=== PATIENT | female | born 1970 | race Caucasian/White ===

== ENCOUNTER 2017-01-19 09:43 | Day surgery (SDC) | payer OTHER ==
[~2017-01-19] VITALS: Ht 172.7 cm; Wt 71.0 kg
[2017-01-19] VITALS (13 sets, daily range): BP systolic 95–145; BP diastolic 6–82; PULSE 65–73; RESP 10–16; O2SAT 73–100
[~2017-01-19 09:43] MED LIST: FERR-83 PO; Lactated Ringer's 1,000 ML IV SCH; SERT20OR6 PO
[2017-01-19] MEDS ORDERED: Ondansetron 2 mg/mL 2 mL Inj ONE (09:44)
[2017-01-19] MEDS ORDERED: Propofol 10,000 mCg/mL 20 mL Inj ONE (09:44)
[2017-01-19] MEDS ORDERED: Dexamethasone 4 mg/mL Inj ONE (09:44)
[2017-01-19] MEDS ORDERED: HYDROmorphone 2 mg/mL Inj ONE (09:44)
[2017-01-19] MEDS ORDERED: MetoCLOpramide 5 mg/mL 2 mL Inj ONE (09:44)
--- NOTE | 2017-01-19 11:09 | PCM.HPANE ---
Patient Data Date of Service: Jan 19, 2017 Surgeon Admitting Provider: Attending Provider:Petey Sibley MD Primary Care Physician:Hema Other Provider:Rosalia Duke Anesthesia Reason for Visit Abnormal Uterine Bleeding Ht/WT & BMI Height (Feet): 5 Height (Inches): 8.00 Weight (Kilograms): 71.0 Body Mass Index 23.00 Allergies Coded Allergies: amoxicillin (Verified Allergy, Intermediate, RASH, 01/15/17) clavulanic acid (Verified Allergy, Intermediate, RASH, 01/15/17) Past Anesthesia History Anesthesia History: Denies:: Anesthesia Reactions, Fam Anesthesia Reaction, Fam Malignant Hypertherm, Malignant Hyperthermia Diabetes History Hx Diabetes?: No MRSA MRSA: No Medications Hypertension Medication: No Home Meds Incl Beta Conner: No Reported Medications Sertraline HCl (Sertraline)20 Mg/1 Ml Oral.conc50 Mg PO DAILY #1 BOTTLE Ref 0 01/15/17 Ferrous Sulfate 325 Mg [id number] Mg PO TID 30 Days Ref 0 01/15/17 History History of ENT Problems?: No HEENT History: Positive for:: Hearing Problem (EUSTACHIAN TUBE DYSFUCTION) Sinus Problem (DEVIATED NASAL SEPTUM, ALLERGIC RHINITIS) TMJ Denture Type: None Teeth Condition: Tooth Decay Hx of Heart Problems?: No Cardiovascular History: Denies:: Chest Pain Other Cardiac History: Raynaud's, no syncope/presyncope Hx of Respiratory Problem?: Yes Respiratory History: Denies:: Asthma Other Resp Pertinent History: smoker Hx Neurologic Problems?: No Neurological History: Denies:: CVA Seizures TIA Hx of GI Problems?: No Gastrointestinal History: Denies:: Gastroesphageal Reflux Hx of Problems?: No Female Hx: Positive for:: Endometriosis Denies:: Currently Skin History: Positive for:: History Skin Disorders? (ECZEMA) Hx Musculoskeletal Problems?: Yes Other History/Comment lower back pain Hx of Psycho/Social Problems?: Yes Psycho Social History: Positive for:: Hx Depression Hx Surgeries?: Yes Other History/Comment BMT, tympanoplasty bilateral, laparoscopy, T&A Hx Any Other Health Problems?: No History Blood Transfusions: Positive for:: Accept Blood Products? Hx Diabetes: No Other Pertinent History: ANEMIA Hx Alcohol Use: Yes (no DT's, endorses being an a alcoholic)Alcoholic Drinks Per Day: 1 pint vodka each evening Smoking Status: Current Every Day Smoker Have You Smoked inLast 12 mo: YesApprox How Many Cigarettes/day: [id number] Stop/Bang Treated for Sleep Apnea?: No Do You Have a CPAP Machine?: No S-Snoring: Do You Snore Loudly: Yes T-Tired: feel tired, fatigued: Yes O-Obsered: Observed not breath: No P-Blood Pressure: treated: No B- Body Mass Index > 35 kg/m2: No A- Age over 50: No N- Neck Large Circumference: No G- Gender Male: No KEMAL Total Score: 2 KEMAL Risk Assessment: Low Risk, <3 Yes Risk Assessment Category Category 1A: Patient has history of documented sleep apnea, and HAS NOT received any narcotic, sedative or anesthesia administration during this stay. Category 1B: Patient has history of documented sleep apnea, and HAS received any narcotic , sedative or anesthesia administration during this stay Category 2: Patient has SUSPECTED Obstructive Sleep Apnea, and HAS received any narcotic , sedative or anesthesia administration during this stay. Category 3: Patient has SUSPECTED Obstructive Sleep Apnea and HAS NOT received narcotic, sedative or anesthesia administration during this stay. Category 4: Outpatient in Procedural Areas with known sleep apnea or who screen positive for High Risk via the STOP/BANG questionnaire. Exam Exam Vital Signs Vital Signs Date Time Temp Pulse Resp B/P Pulse Ox O2 Delivery O2 Flow Rate FiO2 01/19/17 10:35 36.7 66 16 119/73 98 Room Air General Appearance: Alert, Oriented X3, Cooperative, No Acute Distress HEENT/AIRWAY: MP 2, Neck Movement (from), Mouth Opening (>3), Other (TMD>3) Lungs: Diminished Heart: Regular Rate/Rhythm, Normal S1, Normal S2, Murmur (S3 gallop) Plan Impression Patient chart reviewed, patient interviewed and anesthestic plan with risks, benefits, and alternatives discussed, and informed consent obtained. NPO per Anesth. Guidelines: No ASA Physical Status: ASA2 Mod Systemic Disease Anesthetic Plan: GA Bene/Risks/Altern/Consents: Yes HP Complete Prior to Induction: Yes Nima Workman MD Jan 19, 2017 11:09
[2017-01-19] MEDS ORDERED: Lactated Ringer's 1,000 ML IV ONE ×2 (11:23→12:40)
[2017-01-19] MEDS ORDERED: Dexamethasone 4 mg/mL Inj IVPUSH PRN (12:05)
[2017-01-19] MEDS ORDERED: Lactated Ringer's 1,000 ML IV SCH (12:05)
[2017-01-19] MEDS ORDERED: fentaNYL-PF 50 mCg/mL 2 mL Inj IVPUSH PRN (12:05)
[2017-01-19] MEDS ORDERED: Ondansetron 2 mg/mL 2 mL Inj IVPUSH PRN ×2 (12:05→12:55)
[2017-01-19] MEDS ORDERED: EPHEDrine Sulfate 50 mg/mL Inj IVPUSH PRN (12:05)
[2017-01-19] MEDS ORDERED: MetoCLOpramide 5 mg/mL 2 mL Inj IVPUSH PRN (12:05)
[2017-01-19] MEDS ORDERED: HYDROmorphone 1 mg/mL Inj IVPUSH PRN (12:05)
[2017-01-19] MEDS ORDERED: Phenylephrine 10,000 mCg/mL Inj IVPUSH PRN (12:05)
[2017-01-19] MEDS ORDERED: Lactated Ringer's 500 ML IV PRN (12:05)
[2017-01-19] MEDS ORDERED: oxyCODONE-Acetamin 5-325 mg Tablet PO PRN (12:55)
[2017-01-19] MEDS ORDERED: diphenhydrAMINE 25 mg Capsule PO PRN (12:55)
--- NOTE | 2017-01-19 12:58 | PCM.DIMED ---
Discharge Instructions Date of Service Jan 19, 2017 Dates of Hospitalization Diet Discharge Diet: No restrictions Activity Discharge Activity: No restrictions Call your provider Call your provider for: Fever or Chills, Shortness of breath, Bleeding, Chest pain, Vomitting, Excessive diarrhea, Weakness (unilateral) Patient Instructions Follow-up with PCP in: 2 weeks Petey Sibley MD Jan 19, 2017 12:58
--- NOTE | 2017-01-19 13:57 | PCM.ANEP1 ---
Post Anesthesia PACU Phase 1 Assessment Date of Service: Jan 19, 2017 Vital Signs Vital Signs Date Time Temp Pulse Resp B/P Pulse Ox O2 Delivery O2 Flow Rate FiO2 01/19/17 13:42 36.9 70 11 119/68 97 Nasal Cannula 3 01/19/17 13:40 65 10 95 Nasal Cannula 3 01/19/17 13:30 72 10 132/75 94 Room Air 01/19/17 13:25 72 16 133/71 96 Room Air 01/19/17 13:22 73 16 130/73 96 Room Air 01/19/17 13:15 71 13 145/80 96 Room Air 01/19/17 13:11 73 16 140/82 100 Room Air 01/19/17 13:05 68 13 139/80 100 Simple Mask 10 01/19/17 13:01 71 13 144/77 100 Simple Mask 10 01/19/17 12:53 36.9 72 13 95/81 100 Simple Mask 10 01/19/17 10:35 36.7 66 16 119/73 98 Room Air Anesthetic Administered: GA Level of Alertness: Awake, talking ARANA's with Equal Strength: Yes Pain: No Pain Scale Score: 0 Nausea or Vomiting: No CV Function & Hydration Stable: Yes Airway Device: none in PACU Oxygen Delivery: Simple Mask Lungs: Diminished Summary 01/19/17 13:42 36.9 70 11 119/68 97 Nasal Cannula 3 PACU Phase 2 Assessment Complications: No Follow up Care: No Patient Instructions Provided: Yes Nima Workman MD Jan 19, 2017 13:57
--- NOTE | 2017-01-19 21:21 | OP ---
[address] [address] OPERATIVE REPORT PATIENT: SHAGUFTA ACOSTA : 1970 MR#: [id number] ADMIT: 01/19/2017 JOB ID: [id number] CORRECTED REPORT: DATE OF SURGERY: 01/19/2017 SURGEON: Petey Sibley MD PROCEDURE: 1. Hysteroscopy and hysteroscopic myomectomy using MyoSure device. 2. Endometrial ablation using MyoSure device. PREOPERATIVE DIAGNOSIS(ES): Abnormal uterine bleeding. POSTOPERATIVE DIAGNOSIS(ES): 1. Abnormal uterine bleeding. 2. Submucosal leiomyoma. ANESTHESIA: General. ANESTHESIOLOGIST: Nima Workman MD. ESTIMATED BLOOD LOSS: 50 mL. ESTIMATED URINE OUTPUT: 100 mL. FLUIDS: 800 mL of lactated Ringer. Fluid deficit during hysteroscopy 1000 mL of normal saline. COMPLICATIONS: None. FINDINGS: Submucosal leiomyoma of the uterus, type 1, about 2 cm in size. Normal appearance of the cervix and vagina. PROCEDURE IN DETAIL: The patient was brought to the operating room where she underwent general anesthesia without difficulty. The patient was placed in the dorsal lithotomy position using Brian stirrups. She was prepped and draped in usual surgical fashion. Time-out was performed verifying correct patient, correct procedure. Two Miller retractors were placed into the vagina. The cervix was visualized and grasped with a tenaculum. It was dilated using Hegar dilators to the size of 8 mm. Using MyoSure hysteroscope, the uterine cavity was reviewed, it was noted that the patient has submucosal leiomyoma measuring about 2 cm located at 7 o'clock of the uterine cavity. Using my MyoSure tissue removal device, regular sized, the hysteroscopic myomectomy was performed. Total fluid deficit was 1000 mL. The specimen was sent to Pathology. Endometrial ablation was done using NovaSure instrument. The cavity assessment was initially performed and the uterus measured 6.0 cm for the length and 4.3 cm for the width. When the cavity assessment was completed, ablation cycle was started and was completed in 56 seconds. Hysteroscopy was performed at the end of the procedure. All the instruments were removed, good hemostasis was achieved. The patient was repositioned back into the supine position. She tolerated the procedure well and was transferred to the recovery room in stable condition. Corrected by GS 01/25/17 at 1:59pm DOS.
--- NOTE | 2017-01-20 13:43 | PATH ---
SURGICAL PATHOLOGY Attending Physician:Petey Sibley MD CASE STATUS: Signed Out PATIENT NAME: SHAGUFTA ACOSTA PID: [id number] : 1970 DATE COLLECTED:01/19/2017 22:56 SPECIMEN: Uterine Contents CLINICAL HISTORY: ABNORMAL UTERINE BLEEDING SUBMUCOSAL LEIOMYOMA 1). UTERINE FIBROID FINAL DIAGNOSIS: 1.SPECIMEN DESIGNATED UTERINE FIBROID: MULTIPLE FRAGMENTS OF UTERINE SUBMUCUS LEIOMYOMA, NEGATIVE FOR ATYPIA. SECRETORY ENDOMETRIUM, NEGATIVE FOR ATYPIA. ICD10 D25.9 GROSS DESCRIPTION: The specimen is received in one formalin filled container labeled with the patient's name, sublabeled "uterine fibroid" and consists of multiple portions of daly-starr tissue which aggregate to 4.5 x 3.0 x 0.6 CM the specimen is entirely submitted in 4 cassettes. 01/20/2017 [facility] MICRO DESCRIPTION: See diagnosis. ICD-9 CODES: CPT CODES: 1: 87881 Electronically Signed Out Nathanael Pratt MD [facility] [address], [place] [address] Technical component performed at [facility], [facility] [address], [place], [address]
== END 2017-01-19 23:59 | disposition home or self-care (01) ==
LOC: SAS 09:43
PROVIDERS: ATTEND Legal Medicine
DX: N93.9 Abnormal uterine and vaginal bleeding, unspecified (principal); D25.9 Leiomyoma of uterus, unspecified; J30.9 Allergic rhinitis, unspecified; I73.00 Raynaud's syndrome without gangrene; N80.9 Endometriosis, unspecified; D50.9 Iron deficiency anemia, unspecified; F32.9 Major depressive disorder, single episode, unspecified; F17.210 Nicotine dependence, cigarettes, uncomplicated
CPT/HCPCS: 58563; J1100; J1170; J1885; J2250; J2405; J2765; J3010; J7120

== ENCOUNTER 2017-05-04 05:52 | Day surgery (SDC) | payer OTHER ==
[2017-05-04] VITALS (13 sets, daily range): BP systolic 102–145; BP diastolic 63–89; PULSE 60–78; RESP 9–24; O2SAT 97–100
[~2017-05-04] VITALS: Ht 172.7 cm; Wt 73.6 kg
[~2017-05-04 05:52] MED LIST changes: +Acetaminophen IV 1,000 MG in IV Premix 1 EACH IV ONE; +DISU500T PO; -Lactated Ringer's 1,000 ML IV SCH
[2017-05-04] MEDS ORDERED: Ondansetron 2 mg/mL 2 mL Inj ONE (05:53)
[2017-05-04] MEDS ORDERED: Glycopyrrolate 0.2 MG/ML 1mL Inj ONE (05:53)
[2017-05-04] MEDS ORDERED: EPHEDrine/NS 5 mg/mL 5 mL Syringe ONE (05:53)
[2017-05-04] MEDS ORDERED: Dexamethasone 4 mg/mL Inj ONE (05:53)
[2017-05-04] MEDS ORDERED: Rocuronium 10 mg/mL 5 mL Inj ONE (05:53)
[2017-05-04] MEDS ORDERED: Neostigmine 1 mg/mL 10 mL Inj ONE (05:53)
[2017-05-04] MEDS ORDERED: Morphine PF 1 mg/mL 10 mL Inj ONE (05:53)
[2017-05-04] MEDS ORDERED: fentaNYL-PF 50 mCg/mL 2 mL Inj ONE (05:53)
[2017-05-04] MEDS ORDERED: Propofol 10,000 mCg/mL 20 mL Inj ONE (05:53)
[2017-05-04] MEDS ORDERED: SODIUM CHLORIDE 0.9% IV ONE (06:00)
[2017-05-04] MEDS: Lactated Ringer's 1,000 ML IV SCH ×2 (06:00→07:32)
[2017-05-04] MEDS ORDERED: GENTAMICIN IV ONE (06:00)
[2017-05-04] MEDS ORDERED: Clindamycin Inj 900 MG in IV Premix 1 EACH IV ONE (06:00)
[2017-05-04] MEDS ORDERED: MULT-1018 PO (06:16)
[2017-05-04] MEDS ORDERED: VIT B PO (06:16)
[2017-05-04 07:07] LABS: INR 0.97 ratio
[2017-05-04] MEDS ORDERED: Bupivacaine-MPF 0.5% 30 mL Inj INFILTRATE ONE (08:28)
[2017-05-04] MEDS ORDERED: Lactated Ringer's 1,000 ML IV SCH (08:41)
[2017-05-04] MEDS ORDERED: Lactated Ringer's 500 ML IV PRN (08:41)
--- NOTE | 2017-05-04 08:41 | PCM.HPANE ---
Patient Data Date of Service: May 04, 2017 Surgeon Admitting Provider: Attending Provider:Petey Sibley MD Primary Care Physician:Shikha Sarah PA-C Other Provider:Rosalia Duke Anesthesia Reason for Visit Fibroids, Pelvic Pain, Stress Incontinence Ht/WT & BMI Height (Feet): 5 Height (Inches): 8.00 Weight (Kilograms): 73.6 Body Mass Index 24.00 Allergies Coded Allergies: amoxicillin (Verified Allergy, Intermediate, RASH, 01/15/17) clavulanic acid (Verified Allergy, Intermediate, RASH, 01/15/17) Past Anesthesia History Anesthesia History: Denies:: Abnormal Airway, Anesthesia Reactions, Fam Anesthesia Reaction, Fam Malignant Hypertherm, Malignant Hyperthermia Diabetes History Hx Diabetes?: No MRSA MRSA: No Medications Hypertension Medication: No Home Meds Incl Beta Conner: No Reported Medications [vit b6 & 2] No Conflict Check Po Daily 05/04/17 Multivitamin (Multi Vitamin Daily)1 Each Tablet1 Each PO DAILY 30 Days Ref 0 05/04/17 Disulfiram (Antabuse)500 Mg [id number] Mg PO DAILY 04/23/17 Sertraline HCl (Sertraline)20 Mg/1 Ml Oral.conc50 Mg PO DAILY #1 BOTTLE Ref 0 01/15/17 Discontinued Reported Medications Ferrous Sulfate 325 Mg Bavavp125 Mg PO TID 30 Days Ref 0 01/15/17 History History of ENT Problems?: No HEENT History: Positive for:: Sinus Problem (hx of deviated septum) TMJ Denies:: Abnormal Airway Denture Type: None Teeth Condition: Within Normal Limits Hx of Heart Problems?: No Cardiovascular History: Denies:: Chest Pain Hypertension Hx of Respiratory Problem?: No Respiratory History: Denies:: Asthma Oxygen Administration Use of C-PAP Machine Hx Neurologic Problems?: No Neurological History: Denies:: CVA Multiple Sclerosis Parkinson's Disease Seizures Hx of GI Problems?: No Hx of Problems?: Yes HX of Peritoneal Dialysis: No Female Hx: Positive for:: Endometriosis Denies:: Currently Skin History: Positive for:: History Skin Disorders? (ECZEMA) Hx Musculoskeletal Problems?: No Hx of Psycho/Social Problems?: Yes Psycho Social History: Positive for:: Hx Depression Hx Surgeries?: Yes (hysteroscopy, ablation) Hx Any Other Health Problems?: No Other History: Denies:: Cancer Thyroid Disease Hx Diabetes: No Other History/Comment no EtOH since 03/24. Review of labs indicated no endo organ damage from EtOH with exception of thrombocytopenia, however, PLTs >100 indicate expectable risk of placing neuraxial block given normal coagulation profile. Hx Alcohol Use: Yes (pint of vodka evening)Hx Substance Use: No Smoking Status: Current Every Day Smoker Have You Smoked inLast 12 mo: Yes Stop/Bang Treated for Sleep Apnea?: No Do You Have a CPAP Machine?: No S-Snoring: Do You Snore Loudly: No T-Tired: feel tired, fatigued: No O-Obsered: Observed not breath: No P-Blood Pressure: treated: No B- Body Mass Index > 35 kg/m2: No A- Age over 50: No N- Neck Large Circumference: No G- Gender Male: No KEMAL Risk Assessment: Low Risk, <3 Yes Risk Assessment Category Category 1A: Patient has history of documented sleep apnea, and HAS NOT received any narcotic, sedative or anesthesia administration during this stay. Category 1B: Patient has history of documented sleep apnea, and HAS received any narcotic , sedative or anesthesia administration during this stay Category 2: Patient has SUSPECTED Obstructive Sleep Apnea, and HAS received any narcotic , sedative or anesthesia administration during this stay. Category 3: Patient has SUSPECTED Obstructive Sleep Apnea and HAS NOT received narcotic, sedative or anesthesia administration during this stay. Category 4: Outpatient in Procedural Areas with known sleep apnea or who screen positive for High Risk via the STOP/BANG questionnaire. Exam Exam Vital Signs Vital Signs Date Time Temp Pulse Resp B/P Pulse Ox O2 Delivery O2 Flow Rate FiO2 05/04/17 06:20 36.2 70 18 140/89 99 Room Air General Appearance: Alert, Oriented X3 HEENT/AIRWAY: MP 1 Lungs: Clear to Auscultation Heart: Exam Unremarkable Meds/Labs/Diagnostics Admission Meds Current Medications Lactated Ringer's (Lr) 1,000 ml @ 120 mls/hr Q8H20M IV Last administered on t 06:00; Start 05/04/17 at 05:00; Stop 05/04/17 at 13:19 Labs Test 05/04/17 06:37 Prothrombin Time 10.1sec (8.1-12.5) Prothromb Time International Ratio 0.97ratio Activated Partial Thromboplast Time 27.9sec (22.8-33.0) Plan Impression Patient chart reviewed, patient interviewed and anesthestic plan with risks, benefits, and alternatives discussed, and informed consent obtained. NPO per Anesth. Guidelines: No ASA Physical Status: ASA3 Severe Disease Anesthetic Plan: GA Bene/Risks/Altern/Consents: Yes HP Complete Prior to Induction: Yes Randy Salazar MD May 04, 2017 08:41
[2017-05-04] MEDS ORDERED: Dexamethasone 4 mg/mL Inj IVPUSH PRN (08:45)
[2017-05-04] MEDS ORDERED: Ondansetron 2 mg/mL 2 mL Inj IVPUSH PRN ×2 (08:45→11:30)
[2017-05-04] MEDS ORDERED: MetoCLOpramide 5 mg/mL 2 mL Inj IVPUSH PRN (08:45)
[2017-05-04] MEDS ORDERED: fentaNYL-PF 50 mCg/mL 2 mL Inj IVPUSH PRN (08:45)
[2017-05-04] MEDS ORDERED: EPHEDrine Sulfate 50 mg/mL Inj IVPUSH PRN (08:45)
[2017-05-04] MEDS ORDERED: HYDROmorphone 1 mg/mL Inj IVPUSH PRN (08:45)
[2017-05-04] MEDS ORDERED: Phenylephrine 10,000 mCg/mL Inj IVPUSH PRN (08:45)
[2017-05-04] MEDS ORDERED: Lactated Ringer's 1,000 ML IV ONE ×2 (09:40)
[2017-05-04] MEDS ORDERED: Gentamicin 40 mg/mL 2 mL Inj IRRIGATION ONE (09:53)
[2017-05-04] MEDS ORDERED: Estrogens Conjugated 30 Gm Vaginal Cream VAGINAL ONE (09:54)
[2017-05-04] MEDS ORDERED: Vasopressin 20 Unit/mL Inj SUBQ ONE (10:24)
[2017-05-04] MEDS ORDERED: Alum-Mag Hydrox-Simeth 30 mL Suspension PO PRN (11:30)
[2017-05-04] MEDS ORDERED: oxyCODONE-Acetamin 5-325 mg Tablet PO PRN (11:30)
[2017-05-04] MEDS ORDERED: Senna-Docusate 8.6-50 mg Tablet PO PRN (11:30)
--- NOTE | 2017-05-04 12:27 | OP ---
[address] [address] OPERATIVE REPORT PATIENT: SHAGUFTA ACOSTA : 1970 MR#: [id number] ADMIT: 05/04/2017 JOB ID: [id number] DATE OF SURGERY: 05/04/2017 PROCEDURE: 1. Total laparoscopic hysterectomy with bilateral salpingectomy. 2. Placement of mid urethral transobturator sling. PREOPERATIVE DIAGNOSIS(ES): 1. Abnormal uterine bleeding. 2. Fibroid uterus. 3. Chronic pelvic pain. 4. Stress urinary incontinence. POSTOPERATIVE DIAGNOSIS(ES): 1. Abnormal uterine bleeding. 2. Fibroid uterus. 3. Chronic pelvic pain. 4. Stress urinary incontinence. SURGEON: Petey Sibley MD. AIR CARGO AGENT: Aileen Hwang MD. The assistance of Dr. Hwang was necessary for proper manipulation of the tissue, helping with visualization of anatomical structures and retraction and tissue manipulation during the placement of mid urethral sling. ANESTHESIOLOGIST: Randy Salazar MD. ANESTHESIA: General. ESTIMATED BLOOD LOSS: 50 mL. ESTIMATED URINE OUTPUT: 150 mL. FLUIDS: 1400 mL of lactated Ringer's. COMPLICATIONS: None. FINDINGS: The perineum was normal. There was slight pelvic floor relaxation. Normal appearance of the cervix. Fibroid uterus, enlarged with protruding fundal fibroid about the same as the size of the uterus. Normal appearance of fallopian tubes and ovaries. INDICATION FOR THE PROCEDURE: The patient is a 47-year-old, 3, para 3, who has been having abnormal uterine bleeding. Prior endometrial ablation with hysteroscopic myomectomy failed to relieve the symptoms. Also, the patient has been complaining of stress urinary incontinence. She was consented for total laparoscopic hysterectomy with bilateral salpingectomy and placement of mid urethral sling. DESCRIPTION OF PROCEDURE: The patient was brought to the operating room, where she underwent general anesthesia without difficulties. The patient was placed in the dorsal lithotomy position using Brian stirrups. She was prepped and draped in usual surgical fashion. She received preoperative antibiotics. Time-out was performed verifying correct patient, correct procedure. Two Miller retractors were placed into the vagina. The cervix was identified, grasped with a tenaculum and VCare uterine manipulator was placed. The tenaculum was removed. Joseph catheter was placed prior to the procedure as well. Attention was directed to the patient's abdomen, where local injection of lidocaine was administered at the paraumbilical area. Veress needle was introduced. CO2 gas was insufflated with appropriate pneumoperitoneum achieved. A 5 mm vertical subumbilical skin incision was made with a scalpel and a 5 mm trocar was placed. The pelvis was reviewed with a 30-degree laparoscope with the findings mentioned above. Two additional skin incisions were made, one in left lower quadrant 5 cm medially and superiorly from anterior superior iliac spine and the second 5 mm right lower quadrant incision was made 5 cm medially and about 8 cm superiorly from the anterior superior iliac spine. Then, 5 mm trocars were placed through the incision. Using the Lengow uterine manipulator to elevate the uterus in the pelvis and smooth DeBakey grasper for manipulation of the tissue, with the help of Thunderbeat instrument, left and right fallopian tubes were dissected from the mesosalpinx and sent to Pathology in two separate specimens. With the Thunderbeat instrument, the patient's left round ligament, and tubo-ovarian ligaments were ligated and transected. Further dissection was provided along the posterior and anterior leaves of broad ligament until the lower portion of the uterus was reached. The uterine artery on the left side was skeletonized, ligated in two different places and transected. Good hemostasis was achieved. The same was done on the patient's contralateral side. Using LigaSure instrument, anterior portion of the peritoneum was transected along the lower uterine segment and dissected from it, the bladder was moved away from the lower uterine segment and bladder flap was created. A circumferential incision was made with the Thunderbeat instrument, the posterior part of the cervix from the vaginal cuff, preserving uterosacral ligaments intact. It was continued on the patient's right and left sides and then circumferentially finished through anterior portion of the cervix from the vagina. When the dissection was completed, the specimens of uterus and cervix were removed vaginally and sent to Pathology. The vaginal cuff was reapproximated using 2-0 V-Loc suture from patient's left to the right side. During reapproximation it was suspended to the patient's left and right uterosacral ligaments. The pelvis was irrigated with warm normal saline and good hemostasis was reassured. The patient was repositioned into the supine position and the abdomen was desufflated from the CO2 gas. Attention was directed to the vaginal part of the procedure. A weighted speculum was placed into the vagina. Using a solution of vasopressin with normal saline, 20 units of vasopressin were diluted in 100 mL of normal saline. It was injected into mid urethral portion. After that sagittal incision was made with a scalpel and vaginal mucosa was from the underlying tissue using Metzenbaum scissors. Dissection was done towards the right and left rami of the pubic bone. The left and right entry points for placement of the mid urethral sling were marked. They were marked 1 cm laterally and inferiorly from the insertion of the adductor longus tendon. The skin was perforated with a scalpel. Using Gamelet mid urethral sling device, the sling was placed. The helical needle was initially placed on the patient's right side from the outside to inside rotating motion until the tip of the needle reached the mid urethra. The same was done on the patient's contralateral side. The mid urethral sling was attached to the tip of the needle and with a backward motion it was placed tension free at the mid urethral. For better hemostasis, solution of thrombin was applied to the area of the dissection. No bleeding was noted. The transected vaginal mucosa was reapproximated with 2-0 Vicryl suture in a running, locking fashion. The portions of the sling at the level of the skin were trimmed, and the skin was reapproximated with two interrupted 2-0 Vicryl sutures. Dermabond glue was applied as well. Cystoscopy was performed using a 30-degree scope. The bladder mucosa was found to be intact and both ureteral jets were seen confirming patency of both ureters. The urethra was found to be intact. The cystoscope was removed and the Joseph catheter was replaced. The vaginal packing was placed soaked with Premarin cream. Attention was then directed to the abdominal portion of the procedure where all the trocars were removed. After that, the trocar skin incisions were reapproximated with 4-0 Monocryl. Hemostatic dressings were applied. The patient was positioned back into a supine position. She tolerated the procedure well and was transferred to the recovery room in stable condition.
--- NOTE | 2017-05-04 13:11 | NUR ---
Postop Pt comes to floor A&OX4. RA, IV SL. Vaginal packing in place with little drainage SS. Joseph catheter patent and draining to gravity. Pt transfered from [place] to bed with little help. Plan to place on CPOX for monitoring. Care continues
--- NOTE | 2017-05-04 15:08 | PCM.ANEP1 ---
Post Anesthesia PACU Phase 1 Assessment Vital Signs Vital Signs Date Time Temp Pulse Resp B/P Pulse Ox O2 Delivery O2 Flow Rate FiO2 05/04/17 13:17 36.6 62 20 145/83 100 Room Air 05/04/17 12:55 74 14 126/78 98 05/04/17 12:40 73 14 127/75 99 05/04/17 12:25 68 16 125/75 98 05/04/17 12:10 70 15 122/68 99 05/04/17 11:55 66 18 128/65 100 05/04/17 11:40 63 13 114/63 97 Room Air 05/04/17 11:35 63 13 102/66 99 Room Air 05/04/17 11:30 67 9 120/70 98 Room Air 05/04/17 11:30 24 98 05/04/17 11:28 36.2 78 20 132/69 98 Room Air Level of Alertness: Awake, talking ARANA's with Equal Strength: Yes Pain: Yes Nausea or Vomiting: No CV Function & Hydration Stable: Yes Airway Device: Oxygen Delivery: Room Air Lungs: Clear to Auscultation Dermatome Level: Full Sensation PACU Phase 2 Assessment Complications: No Follow up Care: N/A Patient Instructions Provided: N/A Randy Salazar MD May 04, 2017 15:08
[2017-05-04] MEDS: Dextrose 5% Lactated Ringer's 1,000 ML IV SCH ×2 (15:09→21:48)
[2017-05-04] MEDS: Acetaminophen IV 1,000 MG in IV Premix 1 EACH IV PRN (15:09)
[2017-05-04] MEDS: Senna-Docusate 8.6-50 mg Tablet PO SCH (21:33)
[2017-05-05 00:16] VITALS: BP 109/63; PULSE 72; RESP 17; O2SAT 98
[2017-05-05 04:35] VITALS: BP 104/63; PULSE 75; RESP 17; O2SAT 97
--- NOTE | 2017-05-05 05:00 | NUR ---
Pain/Itching Patient is alert and oriented. Joseph is intact, patent, and draining to gravity. Incision sites are closed/intact with no drainage. Patient reports pain as 5/10. Managed with oxycodone PO. Patient reports pain at a tolerable level. Patient also complaining of itching all over. Given benadryl IV PRN q4hrs. Patient tolerating clear liquids well. Repositions in bed independently. Patient states she can feel the spinal wearing off. Bed is down, rails up, call light in reach. Care continues. Addendum: 05/05/17 at 0520 by EZEQUIEL SUMMERS RN Vaginal packing in place with small amount of serosanguineous drainage.
[2017-05-05] MEDS: Dextrose 5% Lactated Ringer's 1,000 ML IV SCH ×2 (05:55→10:50)
[2017-05-05 06:45] LABS: BASOPHILS % (AUTO) 0.3 % (0-3); EOSINOPHILS % (AUTO) 0.8 % (0-5); MONOCYTES % (AUTO) 14.1 % (4-12); Mean Corpuscular Volume 84.1 fL (81-100); NEUTROPHILS % (AUTO) 59.7 % (40-74); Platelet Count 224 bil/L (150-400)
[2017-05-05 07:54] VITALS: BP 117/76; PULSE 70; RESP 18; O2SAT 97
[2017-05-05] MEDS: Senna-Docusate 8.6-50 mg Tablet PO SCH (08:25)
[2017-05-05] MEDS: Acetaminophen IV 1,000 MG in IV Premix 1 EACH IV PRN (10:54)
[2017-05-05 12:41] VITALS: BP 131/86; PULSE 66; RESP 16; O2SAT 99
--- NOTE | 2017-05-05 13:24 | PCM.DIMED ---
Discharge Instructions Date of Service May 05, 2017 Dates of Hospitalization Diet Discharge Diet: No restrictions Activity Discharge Activity: No restrictions Call your provider Call your provider for: Fever or Chills, Shortness of breath, Bleeding, Chest pain, Vomitting, Excessive diarrhea, Weakness (unilateral) Patient Instructions Follow-up with PCP in: 2 weeks Petey Sibley MD May 05, 2017 13:24
[2017-05-05] MEDS ORDERED: OXYC1TAB24 PO (13:26)
[2017-05-05] MEDS ORDERED: DOCU-41 PO (13:26)
[2017-05-05] MEDS ORDERED: IBUP800T28 PO (13:26)
[2017-05-05] MEDS ORDERED: FERR325T6 PO (13:32)
--- NOTE | 2017-05-05 14:15 | DIS ---
[address] [address] DISCHARGE SUMMARY PATIENT: SHAGUFTA ACOSTA : 1970 MR#: [id number] ADMIT: 05/04/2017 JOB ID: [id number] DIS: ADMITTING DIAGNOSES: 1. Abnormal uterine bleeding. 2. Stress urinary incontinence. 3. Fibroid uterus. DISCHARGE DIAGNOSES: 1. Abnormal uterine bleeding. 2. Stress urinary incontinence. 3. Fibroid uterus. HISTORY AND HOSPITAL COURSE: The patient is a 47-year-old, 3, para 3, who was admitted to the hospital for total laparoscopic hysterectomy and placement of mid urethral transobturator sling because of abnormal uterine bleeding and stress urinary incontinence. The patient has had a fibroid uterus with a fundal pedunculated fibroid about the size of the uterus. The surgery went uncomplicated. Estimated blood loss was 50 mL. She was kept overnight for pain management and observation. Post surgically, she had a Joseph catheter placed, and vaginal packing was placed as well. On postoperative day one, May 05, 2017, the Joseph catheter was removed, and vaginal packing was removed as well. There was no vaginal bleeding. The pain was moderate. She was able to tolerate regular food and to ambulate. Vital signs were temperature 36.6, pulse 66, respiratory rate 16, blood pressure 131/86. The trocar incision dressings were removed, and the incisions were dry, clean and intact, as well as transobturator tape skin incisions. IV fluids were discontinued. Postoperative day one CBC showed WBC count 7.7, hemoglobin 7.8, hematocrit 24.3 and platelet count 224. The patient was sent home on postoperative day one, May 05, 2017, with all discharge criteria met. She was given discharge medications includin. Ibuprofen 800 mg p.o. t.i.d. p.r.n. 2. Percocet 5/325 mg p.o. q.i.d. p.r.n. for breakthrough pain. 3. Docusate sodium (Colace) 100 mg p.o. b.i.d. p.r.n. 4. Ferrous sulfate 325 mg p.o. b.i.d. The followup visit in the clinic is scheduled in two weeks.
--- NOTE | 2017-05-05 14:36 | NUR ---
DC Itching all over body has mostly resolved at this point in time. Joseph was removed this AM and the last PVR was at 160mls. MD Sibley aware. Pain controlled with APAP and Ibuprophen alternating. Oxycodone for breakthrough pain. Little to no drainage noted. All discharge instructions reviewed and understood by pt. Prescriptions in hand. All belonging in hand. Staff WC out to car to home with friend. Care discontinues
--- NOTE | 2017-05-07 15:50 | PATH ---
SURGICAL PATHOLOGY Attending Physician:Petey Sibley MD CASE STATUS: Signed Out PATIENT NAME: SHAGUFTA ACOSTA PID: [id number] : 1970 DATE COLLECTED:05/04/2017 00:00 SPECIMEN: 1: Fallopian Tube, Biopsy 2: Fallopian Tube, Biopsy 3: Uterus +/- tubes/ovaries, except neoplastic, prolapse CLINICAL HISTORY: ABNORMAL UTERINE BLEEDING, FIBROID UTERUS, CHRONIC PELVIC PAIN, STRESS INCONTINENCE 1). LEFT FALLOPIAN TUBE 2). RIGHT FALLOPIAN TUBE 3). UTERUS FINAL DIAGNOSIS: 1, 2, 3: Left Fallopian Tube, Right Fallopian Tube, Uterus, Hysterectomy and Bilateral Salpingectomy: Multiple uterine mural and subserosal leiomyomata, up to 4.8 cm in in greatest dimension. Mixed phase endometrium (secretory and proliferative areas) and endometrial polyp; negative for neoplasm. Cervix negative for neoplasm. Bilateral fallopian tube with simple benign paratubal cysts; negative for neoplasm. ICD10: N93.8 D25.9 R10.2 GROSS DESCRIPTION: The specimens are received in formalin, labeled with the patient's name, and sublabeled as the following: (1) left fallopian tube; (2) right fallopian tube; (3) uterus. (1) The specimen consists of a fimbriated fallopian tube (length-7.0 cm, diameter-0.7 cm). The serosa is starr-pink smooth and shiny with multiple paratubal cysts (0.1 cm-0.5 cm) containing clear colorless fluid. The lumen is starr and unremarkable. Section code: (1A) fallopian tube, serially sectioned, liability claims representative; (1B) fimbria, bivalved, entirely submitted. (2) The specimen consists of a fimbriated fallopian tube (length-7.2 cm, diameter-0.7 cm). The serosa is starr-pink smooth and shiny with multiple paratubal cysts (0.1 cm-0.5 cm) containing clear colorless fluid. The lumen is starr and unremarkable. Section code: (2A) fallopian tube, serially sectioned, liability claims representative; (2B) fimbria, bivalved, entirely submitted. (3) The specimen consists of a uterus (240 g, 6.0 cm AP, 9.2 cm SI, 7.5 cm ML). The ovaries and fallopian tubes are absent. The cervix (2.5 x 2.5 cm) has a transverse os and patent endocervical canal. The endometrium (average thickness-0.1 cm) is starr smooth and flat. The myometrium (thickness-2.0 cm) is starr funes and contains multiple solid firm white whorled well-circumscribed homogenous nodules (0.8 x 0.6 x 0.5 cm - 4.2 x 3.3 x 2.4 cm). A subserosal nodule (4.8 x 4.3 x 4.0 cm) with the same characteristics is also identified. The serosa is pale starr smooth and shiny. Section code: (3A) anterior cervix; (3B) posterior cervix; (3C-3E) anterior endomyometrium; (3F-3H) posterior endomyometrium. 05/05/17 ICD-9 CODES: CPT CODES: 1: 10824 2: 24294 3: 61358 Electronically Signed Out Rian Francis MD, Ph.D. [facility] [address], [place] [address] Technical component performed at [facility], [address] [place] [address] Ave[address], [place], [address]
== END 2017-05-05 14:40 | disposition home or self-care (01) ==
LOC: SAS 05:52 → OSC 13:10 → SAS 05-05 14:40
PROVIDERS: ATTEND Legal Medicine
DX: N93.9 Abnormal uterine and vaginal bleeding, unspecified (principal); D25.1 Intramural leiomyoma of uterus; N39.3 Stress incontinence (female) (male); R10.2 Pelvic and perineal pain; F32.9 Major depressive disorder, single episode, unspecified; J30.9 Allergic rhinitis, unspecified; I73.00 Raynaud's syndrome without gangrene; F17.210 Nicotine dependence, cigarettes, uncomplicated
CPT/HCPCS: 36415; 57288; 58571; 85025; 85610; 85730; C1771; J0131; J1100; J1200; J1580; J1885; J2250; J2274; J2405; J2704; J2710; J3010; J3490; J7120

== ENCOUNTER 2017-05-08 13:37 | Emergency (ER) | payer OTHER ==
[~2017-05-08] VITALS: Ht 172.7 cm; Wt 72.7 kg
[~2017-05-08 13:37] MED LIST changes: -Acetaminophen IV 1,000 MG in IV Premix 1 EACH IV ONE; +DOCU-41 PO; -FERR-83 PO; +FERR325T6 PO; +IBUP800T28 PO; +MULT-1018 PO; +OXYC1TAB24 PO; +VIT B PO
[2017-05-08 13:42] VITALS: BP 133/79; PULSE 75; RESP 16; O2SAT 100
--- NOTE | 2017-05-08 13:54 | ED.REPORT ---
HPI-Abd Pain F Under 40 Date of Service May 08, 2017 ED Provider: Tam Bay DO Patient is a 47 year old female status post partial hysterectomy with a bladder sling 4 days ago who presents to the ED complaining of suprapubic pain. Associated symptoms include pain that has since radiated diffusely in her abdomen and into her back. She reports that she also feels bloated. Patient has been able to urinate but is unsure if she is retaining urine. She denies fever. The patient states that she has been using ibuprofen and Tylenol for her pain. Nursing Notes Stated Complaint: POST SURGERY BLADDER COMPLICATION Chief Complaint: Female Abdominal Pain Nursing Notes Reviewed: Yes Allergies: Coded Allergies: amoxicillin (Verified Allergy, Intermediate, RASH, 05/08/17) clavulanic acid (Verified Allergy, Intermediate, RASH, 05/08/17) Scheduled ([vit b6 & 2]) PO DAILY Disulfiram (Antabuse) 500 Mg Tablet 250 MG PO DAILY Ferrous Sulfate (Ferrous Sulfate) 325 Mg Tablet.dr 325 MG PO DAILY Multivitamin (Multi Vitamin Daily) 1 Each Tablet 1 EACH PO DAILY Sertraline HCl (Sertraline) 20 Mg/1 Ml Oral.conc 50 MG PO DAILY Scheduled PRN Docusate Sodium (Colace) 100 Mg Capsule 100 MG PO BID PRN PRN For Constipation Ibuprofen (Ibuprofen) 800 Mg Tablet 800 MG PO TID PRN PRN For Mild Pain oxyCODONE-Acetaminophen 5-325 mg (oxyCODONE-Acetaminophen 5-325 mg) 1 Each Tablet 1-2 TAB PO QID PRN PRN For Moderate Pain General Time Seen by MD: 13:53 Chief Complaint Abdominal pain Hx Obtained From: Patient Arrived By: Walk-in Sudden in Onset?: Yes Onset Occurred: 3 days ago Context of Onset: Recent surgery Symptom Duration: Since onset Location: : Suprapubic Quality: Painful Radiation: : Abdomen lower: Abdomen upper: Back Severity: Current: Moderate Recent Healthcare: Recent doctor visit, Previous surgery Similar Sx Previous: No Past Medical History Past Medical History none reported Past Surgical History Reports: Hysterectomy Smoking History Current Every Day Smoker Social History Other Social History: Lives with children Ambulatory Status Independent Review of Systems Constitutional: Denies: Fever GI: Reports: Abdominal pain Female: Denies: Urinary frequency, Urination decreased Musculoskeletal: Reports: Back pain Complete sys rev & neg: except as marked. Physical Exam Initial Vital Signs Vital Signs (First) Date Time Temp Pulse Resp B/P Pulse Ox O2 Delivery O2 Flow Rate FiO2 05/08/17 13:42 37.0 75 16 133/79 100 Room Air Initial VS: Reviewed General/Constitutional: Awake, Alert Respiratory / Chest: Atraumatic, Breath sounds NL, Breath sounds = bilat, No respiratory distress Cardiovascular: Heart rate NL, Regular rhythm, Heart sounds NL Abdomen: Atraumatic, Soft Tenderness/Guarding/Rebound: Positive: Tender diffuse surgical sites appear clean and well healing Back: Atraumatic, Inspection NL Head / Eyes: Atraumatic, Normocephalic Skin: Atraumatic, Color NL, No rash, Warm, Dry Neurologic: Oriented X3, Speech NL Interpretation & Diagnostics Lab Results Interpretation Result Diagram: 05/08/17 1410 05/08/17 1410 Test 05/08/17 13:57 05/08/17 14:10 Urine Color Yellow (YELLOW) Urine Appearance Clear (CLEAR,HAZY) Urine pH 7.0 (5.0-8.0) Urine Specific [place] <1.005 (1.003-1.035) Urine Protein Negativemg/dL (NEG,TRACE) Urine Glucose (UA) Negativemg/dL (NEGATIVE) Urine Ketones Negativemg/dL (NEGATIVE) Urine Occult Blood Trace (NEGATIVE) Urine Nitrite Negative (NEGATIVE) Urine Bilirubin Negative (NEGATIVE) Urine Urobilinogen Normalmg/dL (NORMAL) Urine Leukocyte Esterase Small (NEGATIVE) Urine RBC 0-2/hpf (0-2) Urine WBC 0-5/hpf (0-5) Urine Epithelial Cells Few/hpf (NONE-MOD) Urine Crystals None seen (NONE SEEN) Urine Bacteria Few/hpf (NONE-FEW) Urine Hyaline Casts None/lpf (NONE) Urine Granular Casts None seen (NONE SEEN) Urine Waxy Casts None seen (NONE SEEN) Urine Red Blood Cell Casts None seen (NONE SEEN) Urine White Blood Cell Casts None seen (NONE SEEN) Urine Mucus None seen (None Seen) Urine Trichomonas None seen (NONE SEEN) Urine Yeast None (NONE SEEN) Urinalysis Comment None Urine Culture Reflexed Indicated Hold Urine Received (Received) White Blood Count 11.7th/mm3 (3.8-10.1) Red Blood Count 3.23mil/mm3 (3.90-5.20) Hemoglobin 8.6g/dL (12.0-15.6) Hematocrit 27.0% (35.0-46.0) Mean Corpuscular Volume 83.6fL (81-100) Mean Corpuscular Hemoglobin 26.6pg (27.0-35.0) Mean Corpuscular Hemoglobin Concent 31.9% (32.0-37.0) Red Cell Distribution Width 13.7% (12.3-15.4) Platelet Count 259bil/L (150-400) Neutrophils (%) (Auto) 81.1% (40-74) Lymphocytes (%) (Auto) 8.1% (14-46) Monocytes (%) (Auto) 9.5% (4-12) Eosinophils (%) (Auto) 0.9% (0-5) Basophils (%) (Auto) 0.3% (0-3) Sodium Level 135mEq/L (134-144) Potassium Level 4.0mEq/L (3.5-5.2) Chloride Level 101mEq/L (97-108) Carbon Dioxide Level 25mmol/L (18-29) Blood Urea Nitrogen 7mg/dL (6-24) Creatinine 0.65mg/dL (0.57-1.00) Estimat Glomerular Filtration Rate 139mL/min (>59) Glucose Level 102mg/dL (60-99) Calcium Level 8.6mg/dL (8.5-10.1) Total Bilirubin 0.2mg/dL (0.0-1.2) Aspartate Amino Transf (AST/SGOT) 13U/L (0-50) Alanine Aminotransferase (ALT/SGPT) 11U/L (0-32) Alkaline Phosphatase 59U/L (25-150) Total Protein 6.6g/dL (6.4-8.4) Albumin 3.5g/dL (3.4-5.0) Lipase 23U/L (13-60) Hold Lopez Top Tube Received (Received) Re-Eval/Medical Decision Med Decision/Clinical Course Postoperative suprapubic pain and mild diffuse abdominal tenderness. I plan on checking labs and a urine sample. Case endorsed to Dr. Pham as I am leaving the emergency department. He will follow-up the labs and consult with gynecology. Re-Evaluation/Progress : Time of Eval: 16:30 Re-Evaluation/Progress Note: Discussed labs and plan for discharge. Patient understands and agrees to plan. All questions were addressed. Consultation : Referral / Consult Name: Kacie Babin MD Consulted With: On-call physician (OBGYN) Call Returned at: 16:20 Wet End Tester: Agrees with eval, Agrees with plan Counseled Regarding: Diagnosis, Lab results, Need for follow-up, When/why to return to ED Discharge & Departure Primary Impression: Postoperative abdominal pain Disposition: Home Discharge Condition All VS Reviewed: Yes Condition: Stable Additional Instructions: Your labs and urine were normal and reassuring. There was no evidence of a UTI. Your pain should start to improve over the next few days. You can take pain medication you were previously prescribed. Adding Radha can help prevent constipation if you are using the pain medication. Follow up with your primary care physician next week. Return to the emergency department if you develop any new or concerning symptoms including fevers, chills, vomiting, blood in your urine or worsening symptoms. Referrals: Shikha Sarah PA-C (PCP) Riaz Attestation Portions of this note were transcribed by Hattie Sun. I, Dr. Bay personally performed the history, physical exam and medical decision-making; I reviewed and confirmed the accuracy of the information in the transcribed note. Signed by: Riaz Mari, 05/08/17 copies to: Shikha Sarah PA-C, Todd P DO May 08, 2017 13:54 Sindi Sun May 08, 2017 14:03
[2017-05-08 14:25] LABS: BASOPHILS % (AUTO) 0.3 % (0-3); EOSINOPHILS % (AUTO) 0.9 % (0-5); MONOCYTES % (AUTO) 9.5 % (4-12); Mean Corpuscular Hemoglobin 26.6 pg (27.0-35.0); Mean Corpuscular Volume 83.6 fL (81-100); NEUTROPHILS % (AUTO) 81.1 % (40-74); Platelet Count 259 bil/L (150-400)
[2017-05-08 14:42] LABS: APPEARANCE,URINE CLEAR (CLEAR,HAZY); COLOR,URINE YELLOW (YELLOW); OCCULT BLOOD,URINE TRACE (NEGATIVE); UROBILINOGEN,URINE NORMAL (NORMAL)
[2017-05-08 16:22] VITALS: BP 144/89; PULSE 67; RESP 14; O2SAT 99
--- NOTE | 2017-05-08 16:38 | PCM.EDPN ---
ED Note Date of Service May 08, 2017 I assumed care of this patient from at approximately 2 PM. I reviewed the documentation and interviewed the patient and examined the patient myself. Her abdomen is diffusely tender without guarding or mass. She appears nontoxic her vital signs are normal, she has laboratory data that is relatively reassuring despite a minimally elevated white blood cell count. I discussed the case with on-call for and reported the fact that she has no significant urinary retention and appears relatively well. Dr. ashley thought that it was safe to send her home based on my description with outpatient follow-up next week. Assessment: Postoperative pain and stool softeners as well as. Instructions given regarding when to return to the emergency departments with symptoms such as fever, worsening pain, excessive vomiting. Cornelius Pham MD May 08, 2017 16:38
[2017-05-08 16:45] VITALS: BP 144/89; PULSE 67; RESP 14; O2SAT 99
== END 2017-05-08 16:45 | disposition home or self-care (01) ==
LOC: SED 13:37
DX: R10.30 Lower abdominal pain, unspecified (principal); G89.18 Other acute postprocedural pain; F17.200 Nicotine dependence, unspecified, uncomplicated; Z90.711 Acquired absence of uterus with remaining cervical stump; Z88.0 Allergy status to penicillin; Z88.8 Allergy status to other drugs, medicaments and biological substances